=== PATIENT | male | born 1935 | race Caucasian/White ===

== ENCOUNTER 2017-06-21 16:09 | Observation (INO) ==
--- NOTE | 2017-06-21 17:00 | XRay Report ---
2 view chest June 21, 2017 at 0453 hours Indication: Shortness of breath Comparison: July 29, 2015 Findings: Cardiomediastinal contours are stable with sternotomy wires and midline. Lungs are clear bilaterally. No acute osseous abnormalities. Visualized upper abdomen demonstrates no acute pathology. Impression: No acute cardiopulmonary findings PROCEDURE INTERPRETED AT [facility] [place] DEPARTMENT OF RADIOLOGY Final Report Signed by: Stephan Yen
[2017-06-21 17:21] LABS: Basophils # 0.1 10*3/uL (0.0-0.2); Basophils % 0.5 % (0.0-0.8); Eosinophils # 0.1 10*3/uL (0.0-0.87); Eosinophils % 0.4 % (0.00-10.9); Hemoglobin 15.4 GM/DL (14.0-18.0); Immature Granulocytes % 0.6 %; Immature Granulocytes Absolute 0.08 #; Lymphocytes # 1.2 10*3/uL (1.4-4.0); Lymphocytes % 8.5 % (21.2-54.2); Mean Corpuscular HGB Conc 33.5 GM/DL (32-36); Mean Corpuscular Hemoglobin 30 PG (27-34); Mean Corpuscular Volume 90.9 FL (87-102); Mean Platelet Volume 8.8 FL (9.6-12.0); Monocytes # 0.6 10*3/uL (0.11-0.8); Monocytes % 4.1 % (1.7-12.7); Neutrophils # 11.9 10*3/uL (1.4-7.4); Neutrophils % 85.9 % (38.7-73.9); Platelet Count 241 T/CUMM (130-400); Red Blood Count 5.06 MC/CUMM (3.8-5.5); Red Cell Distribution Width 13.5 % (9.3-17.3); White Blood Count 13.9 T/CUMM (4-12)
[2017-06-21] MEDS ORDERED: ALBUTEROL/IPRATROPIUM 3 ML NEB RESP TX STA (17:23)
--- NOTE | 2017-06-21 17:24 | Emergency Department Note ---
IEstefany Emily, am scribing for, and in the presence of, Angel Benavides MD 17: 20. Makayla Diaz Charles R, MD, personally performed the services described in this documentation, ascribed by Nae Allison in my presence, and it is both accurate and complete 724 . Arrival - Arrival Chief Complaint: Shortness of Breath Stated Complaint: Blood pressure. Seeing double ED Nursing Triage Note: c/o shortness of breath onset "couple of days ago". + chills. Denies cough. Also c/o "double vision" and low blood pressure---seen by Dr Murray today and instructed to come to ER. Denies pain. Mode of Arrival: Wheelchair Limitations: No Limitations Source: Patient, Family (daughter) - History of Present Illness HPI Narrative: Pt is a 82 y/o male who came to ED with c/o SOB that onset "couple of days" but experienced double vision while driving today. Family notes voice is off, usually distinctive and clear, not raspy as it is currently. Pt states also experiencing generalizing weakness, low BP, but denies cough or any pain. Pt was seen by Dr Murray today and instructed to come to ED. PMHx of CAD, COPD, AL, HTN, GERD, BPH, CABG by Kyrie, no stroke hx. Family notes pt hasn't ate anything all day but is 128 today. Family notes pt had knee surgery years back and has knee pain chronically, so has had weight gain from decrease physical activity. Pt takes care of himself and at home. Onset (ago): hour(s) Consistency: constant Severity: mild, moderate Severity scale (1-10): 4 Quality: other (weakness) Allergies/Adverse Reactions: Allergies Allergy/AdvReac Type Severity Reaction Status Date / Time No Known Allergies Allergy Verified 06/21/17 16:41 Home Medications: Home Medications Medication Instructions Recorded Confirmed Type Aspirin Tab 1 tablet PO QAM 06/24/15 06/21/17 History Pantoprazole Tab [Protonix Tab] 40 mg PO QAM 06/24/15 06/21/17 History Ramipril [Altace] 10 mg PO QAM 06/24/15 06/21/17 History Tamsulosin [Flomax] 0.4 mg PO QAM 06/24/15 06/21/17 History Zolpidem Tartrate [Ambien] 10 mg PO BEDTIME 06/24/15 06/21/17 History clonazePAM TAB [KlonoPIN] 0.5 mg PO BID 06/24/15 06/21/17 History Albuterol/Ipratropium Neb [Duoneb] 3 ml RESP TX RT Q6H #1 06/26/15 06/21/17 Rx Atenolol [Atenolol] 25 mg PO QAM 06/21/17 06/21/17 History Hydrocodone/Acetaminophen 1 tablet PO Q6H PRN 06/21/17 06/21/17 History [Hydrocodon-Acetaminophn 10-325] Methocarbamol [Methocarbamol] 500 mg PO DAILY PRN 06/21/17 06/21/17 History Review of System - Review of System 12 point system: reviewed and no additional remarkable complaints except as stated - Review of System Constitutional: Present: other (low BP). Absent: chills, fever, weakness Eyes: Present: vision change (double vision) Respiratory: Present: respiratory distress (SOB) Cardiovascular: Absent: chest pain, syncope Gastrointestinal: Absent: abdominal pain, nausea, vomiting Musculoskeletal: Present: leg pain (chronically). Absent: arm pain Skin: Absent: rash Neurological: Present: weakness, other (raspy voice). Absent: headache, numbness, confusion, abnormal gait Medical,Surgical,& Family Hx - Medical History Cardio: History of: CAD, Hypertension, AL Respiratory: History of: COPD Genitourinary: History of: Prostate Problems (BPH) Gastrointestinal: History of: GERD - Surgical History Cardiac Surgeries: Sugical HX of: Cardiac Surgery (CABG) Abdominal Surgeries: Surgical HX of: Appendectomy, Colonoscopy, EGD Reproductive Surgeries: Surgical HX of;: Prostate Surgery Orthopedic Surgeries: Surgical HX of;: Total Knee Replacement (left) - Family History Family History: Reports;: Family Heart Disease, Family Hypertension (father, mother, brother) - Social History Smoking Status: Never smoker Frequency of Alcohol Use: None Type of Drug Use: None Marital Status: Lives With:: Spouse Functional capacity: independent ambulation Exam Vital Signs: Vital Signs Temperature 97.8 F 06/21/17 16:36 Pulse Rate 77 06/21/17 18:30 Respiratory Rate 23 06/21/17 18:30 Blood Pressure 123/63 06/21/17 18:30 O2 Sat by Pulse Oximetry 99 06/21/17 18:30 - General General appearance: alert, in no apparent distress - Head Head exam: Present: atraumatic, normocephalic - Eye Eye exam: Present: PERRL, EOMI - ENT ENT exam: Present: mucous membranes moist. Absent: mucous membranes dry - Neck Neck exam: Present: full ROM - Chest Chest inspection: Present: symmetric chest wall rise. Absent: tenderness - Respiratory Respiratory exam: Present: rales (slight rales; more crackles), rhonchi. Absent : accessory muscle use, respiratory distress - Cardiovascular Cardiovascular exam: Present: regular rate, normal rhythm, normal heart sounds - Abdominal Exam Abdominal exam: Present: soft, distention (bloated). Absent: tenderness - Extremities Exam Extremities exam: Present: full ROM, pedal edema. Absent: tenderness - Neurological Exam Neurological exam: Present: alert, oriented X3 (no confusion), CN II-XII intact , other (speech is slowed and weak, but not slurred). Absent: motor sensory deficit - Psychiatric Psychiatric exam: Present: normal affect, normal mood - Skin Skin exam: Present: warm, dry Course - Reevaluation(s) Reevaluation #1: On the emergency room patient developed his diplopia again when he covers one eye right or left his vision is normal both he has double vision past 6 feet Time: 18:59 - Consultations Consultation #1: Hospitalist will admit patient Time: 19:29 Results - Labs CBC & BMP: 06/21/17 17:10 06/21/17 17:10 Lab Results: I have reviewed the patients labs Labs: Laboratory Tests 06/21/17 17:10 WBC 13.9 H RBC 5.06 Hgb 15.4 Hct 46.0 Plt Count 241 MPV 8.8 L Neut % (Auto) 85.9 H Lymph % (Auto) 8.5 L Neut # (Auto) 11.9 H Lymph # (Auto) 1.2 L Laboratory Tests 06/21/17 17:10 Sodium 137 Potassium 4.5 Chloride 101 Carbon Dioxide 29 Creatinine 1.80 H GFR Calculation 45 Glucose 131 H AST 24 Alkaline Phosphatase 102 Total Creatine Kinase 67 CK-MB (CK-2) < 1.0 Troponin I < 0.015 Total Protein 8.4 H Globulin 4.5 H Albumin/Globulin Ratio 0.8 L - Diagnostic Findings Procedure: Chest x-ray: report reviewed by me (No acute cardiopulmonary findings.) Disposition Clinical Impression: Debility, COPD (chronic obstructive pulmonary disease), Diplopia, Generalized weakness, TIA (transient ischemic attack) Case discussed with: patient, patient's family Disposition: Still a Patient Condition: Stable Time of Disposition: 19:00 NIH Stroke Score - Stroke Score Initial Assessment Level of Consciousness: Alert Level of Consciousness Questions: Answers Both Correctly Level of Consciousness Commands: Obeys Both Correctly Best Gaze: Normal Visual Tomlinson: No Visual Loss Facial Palsy: Normal Motor - Right Arm: No Drift Motor - Left Arm: No Drift Motor - Right Leg: No Drift Motor - Left Leg: No Drift Limb Ataxia: Absent Sensory (Pin Prick): Normal Best Language: Normal Dysarthria: Normal Extinction / Inattention (Neglect): No Neglect NIH Stroke Score: 0
[2017-06-21 17:50] LABS: Alanine Aminotransferase 18 U/L (16-61); Albumin 3.9 G/DL (3.4-5.0); Alkaline Phosphatase 102 U/L (45-117); Aspartate Amino Transferase 24 U/L (0-37); Calcium 9.9 MG/DL (8.5-10.1); Total Protein 8.4 G/DL (6.4-8.3)
[2017-06-21 17:51] LABS: Blood Urea Nitrogen 11 MG/DL (7-18); Glucose 131 MG/DL (74-106); Osmolality,Calculated 273.8 MOS/KG (273-304); Potassium 4.5 MMOL/L (3.5-5.1); Sodium 137 MMOL/L (136-145); Troponin I Only < 0.015 NG/ML (0.00-0.045)
--- NOTE | 2017-06-21 17:58 | EKG Report ---
Stationary ECG Study [facility] ER Test Date: 06/21/2017 4:46:29 PM Pat Name: VIVIANE MOORE Department: Room: Gender: M Tuyere Fitter: Sue Duarte : 1935 Requested by: Meli Webster Order Number: [id number] Reading MD: RAISSA ASHLEY Intervals [place] Rate: 69 P: 74 [place]: 154 QRS: 76 QRSD: 78 T: 91 QT: 411 QTc: 430 Interpretive Statements SINUS RHYTHM WITH SINUS ARRHYTHMIA Electronically Signed On 06-21-17 20:16:05 CDT by RAISSA ASHLEY [email or web address]
--- NOTE | 2017-06-21 18:26 | CT Report ---
CT head/brain wo con INDICATION: Diplopia The total DLP is 1081 mGy*cm. COMPARISON: None available Technique: Serial axial tomographic images of the brain were obtained without the use of intravenous contrast. Dose reduction: This CT exam was performed using one or more of the following dose reduction techniques: Automated exposure control, automated adjustment of the mA and/or KV according to patient size, or use of iterative reconstruction technique. Findings: Moderate generalized atrophy is noted with mild prominence of the sulci and cortical volume loss. Periventricular white matter hypodensity changes are noted bilaterally which do not demonstrate mass effect and are nonspecific but favored to represent sequela of chronic microvascular ischemia. There is no evidence of vascular territory infarct or acute intracranial hemorrhage. The marcos-white matter differentiation is generally maintained. There is no hydrocephalus. The basilar cisterns are patent. The visualized paranasal sinuses, mastoid air cells and middle ear cavities are predominantly clear. Postsurgical changes of bilateral maxillary antrostomies are noted. The included orbits and their contents appear within normal limits. The visualized osseous structures and overlying soft tissues of the skull and face demonstrate no acute abnormality. IMPRESSION: No acute intracranial abnormality. Mild generalized atrophy and sequela of chronic microvascular ischemia. PROCEDURE INTERPRETED AT [facility] DEPARTMENT OF RADIOLOGY Final Report Signed by: Burt Francisco
--- NOTE | 2017-06-21 20:01 | Hospitalist History & Physical ---
Assessment and Plan (1) Diplopia Status: Acute Assessment and plan: The patient is admitted to the hospital for evaluation of diplopia. We will check MRI scan. We will obtain neurology consultation. We will continue the patient's usual home medications. Current Visit: Yes (2) COPD (chronic obstructive pulmonary disease) Problem details: No acute bronchospasm Continue bronchodilator therapy prn empiric Abx Rx no solumedrol Status: Chronic Current Visit: Yes Qualifiers: Chronic bronchitis type: simple Qualified Code(s): J41.0 - Simple chronic bronchitis (3) Debility Status: Acute Current Visit: Yes History of Present Illness Chief complaint: Diplopia and shortness of breath History of present illness: Mr. Belle is a 82 year old male with history of intermittent atrial fibrillation and moderate to severe COPD. The patient was on his way to a primary care visit with Dr. Vuong today. The patient noticed while driving that he had diplopia. The patient was able to maneuver successfully. I had Dr. Vuong's office he was noted to have low blood pressure and they referred him to the emergency room. The patient is feeling better now although he has has some residual nausea and abdominal distention. The patient's symptoms are moderate, continuous, and slowly improving. The patient is alert and oriented. He does not manifest dysarthria. The patient not denies fever or chills. A complete 10 system review was obtained all systems not mentioned in history of present illness were negative. Home Medications Medication Instructions Recorded Confirmed Type Aspirin Tab 1 tablet PO QAM 06/24/15 06/21/17 History Pantoprazole Tab [Protonix Tab] 40 mg PO QAM 06/24/15 06/21/17 History Ramipril [Altace] 10 mg PO QAM 06/24/15 06/21/17 History Tamsulosin [Flomax] 0.4 mg PO QAM 06/24/15 06/21/17 History Zolpidem Tartrate [Ambien] 10 mg PO BEDTIME 06/24/15 06/21/17 History clonazePAM TAB [KlonoPIN] 0.5 mg PO BID 06/24/15 06/21/17 History Albuterol/Ipratropium Neb [Duoneb] 3 ml RESP TX RT Q6H #1 06/26/15 06/21/17 Rx Atenolol [Atenolol] 25 mg PO QAM 06/21/17 06/21/17 History Hydrocodone/Acetaminophen 1 tablet PO Q6H PRN 06/21/17 06/21/17 History [Hydrocodon-Acetaminophn 10-325] Methocarbamol [Methocarbamol] 500 mg PO DAILY PRN 06/21/17 06/21/17 History Allergies Allergy/AdvReac Type Severity Reaction Status Date / Time No Known Allergies Allergy Verified 06/21/17 16:41 Medical,Surgical,& Family Hx - Medical History Cardio: History of: CAD, Hypertension, [place] Respiratory: History of: COPD Genitourinary: History of: Prostate Problems (BPH) Gastrointestinal: History of: GERD - Surgical History Cardiac Surgeries: Sugical HX of: Cardiac Surgery (CABG) Abdominal Surgeries: Surgical HX of: Appendectomy, Colonoscopy, EGD Reproductive Surgeries: Surgical HX of;: Prostate Surgery Orthopedic Surgeries: Surgical HX of;: Total Knee Replacement (left) - Family History Family History: Reports;: Family Heart Disease, Family Hypertension (father, mother, brother) - Social History Smoking Status: Never smoker Frequency of Alcohol Use: None Type of Drug Use: None Marital Status: Lives With:: Spouse Functional capacity: independent ambulation 12 point system: reviewed and no additional remarkable complaints except as stated Exam - Constitutional Vitals: Period Temp Pulse Resp BP Sys/Richards Pulse Ox Last 24 Hr 97.8 F 67-77 18-25 100-142/45-75 98-100 Exam: Constitutional System: Mild distress. No tremulousness. Head: Normocephalic, atraumatic. Ears, Nose and Throat System: No evidence of Otitis or Mastoiditis. No epistaxis or discharge Eyes System: Pupils equal, round, and reactive. Extraocular muscles intact. Neck: Supple, without adenopathy, No jugular venous distention. No thyromegaly , neck mass, or prior surgery apparent. Respiratory System: Chest clear to auscultation. There is moderate air trapping and minimal wheezing Cardiovascular System: Heart with regular rate and rhythm. No murmur. GI System: Abdomen soft, nontender. Normo active bowel sounds present. Musculoskeletal System: limbs with no pedal edema. Full distal pulses. Neurological System: No discernable sensory deficit. No aphasia Psychiatric System: Conversation is rational Capillary Refill: less than 2 sec Results - Labs CBC & BMP: 06/21/17 17:10 06/21/17 17:10 Lab Results: I have reviewed the past 24 hour labs
[2017-06-21] MEDS ORDERED: ENOXAPARIN 40 MG/0.4 ML SYRINGE SUBCUT SCH (21:00)
[2017-06-21] MEDS ORDERED: ONDANSETRON 4 MG/2 ML VIAL IV PRN (21:58)
[2017-06-21] MEDS ORDERED: ACETAMINOPHEN 325 MG TABLET PO PRN (21:58)
[2017-06-21] MEDS ORDERED: ZALEPLON 5 MG CAPSULE PO SCH (21:58)
[2017-06-21] MEDS: SODIUM CHLORIDE 0.9% 1,000 ML IV SCH (22:18)
[2017-06-21] MEDS: clonazePAM 0.5 MG TABLET PO SCH (22:18)
[2017-06-22] MEDS: ALBUTEROL/IPRATROPIUM 3 ML NEB RESP TX SCH ×3 (00:57→13:12)
[2017-06-22 06:22] LABS: Blood Urea Nitrogen 17 MG/DL (7-18); Calcium 8.9 MG/DL (8.5-10.1); Glucose 89 MG/DL (74-106); Osmolality,Calculated 279.4 MOS/KG (273-304); Potassium 4.2 MMOL/L (3.5-5.1); Sodium 140 MMOL/L (136-145); Troponin I Only < 0.015 NG/ML (0.00-0.045)
--- NOTE | 2017-06-22 07:30 | EKG Report ---
Stationary ECG Study [facility] Test Date: 06/22/2017 7:28:29 AM Pat Name: VIVIANE MOORE Department: Room: 524 Gender: M Racing Secretary And Handicapper: EDWIN : 1935 Requested by: Elton Leon Order Number: [id number] Reading MD: RAISSA ASHLEY Intervals [place] Rate: 67 P: 52 MD: 163 QRS: 53 QRSD: 88 T: 138 QT: 410 QTc: 425 Interpretive Statements SINUS RHYTHM WITH MARKED SINUS ARRHYTHMIA ST DEVIATION AND MODERATE T-WAVE ABNORMALITY, CONSIDER ANTERIOR ISCHEMIA Electronically Signed On 06-22-17 14:05:47 CDT by RAISSA ASHLEY [email or web address]
[2017-06-22 07:38] LABS: Basophils # 0.1 10*3/uL (0.0-0.2); Basophils % 0.5 % (0.0-0.8); Eosinophils # 0.3 10*3/uL (0.0-0.87); Eosinophils % 2.5 % (0.00-10.9); Immature Granulocytes % 0.3 %; Immature Granulocytes Absolute 0.03 #; Lymphocytes # 2.3 10*3/uL (1.4-4.0); Lymphocytes % 22.3 % (21.2-54.2); Mean Corpuscular HGB Conc 33.3 GM/DL (32-36); Mean Corpuscular Hemoglobin 31 PG (27-34); Mean Corpuscular Volume 91.7 FL (87-102); Mean Platelet Volume 9.2 FL (9.6-12.0); Monocytes # 0.8 10*3/uL (0.11-0.8); Monocytes % 7.5 % (1.7-12.7); Neutrophils # 6.8 10*3/uL (1.4-7.4); Neutrophils % 66.9 % (38.7-73.9); Platelet Count 198 T/CUMM (130-400); Red Blood Count 4.36 MC/CUMM (3.8-5.5); Red Cell Distribution Width 13.5 % (9.3-17.3); White Blood Count 10.2 T/CUMM (4-12)
[2017-06-22 07:41] LABS: Hemoglobin 13.3 GM/DL (14.0-18.0)
[2017-06-22] MEDS ORDERED: TAMSULOSIN 0.4 MG CAPSULE PO SCH (09:00)
[2017-06-22] MEDS ORDERED: PANTOPRAZOLE 40 MG TABLET PO SCH (09:00)
[2017-06-22] MEDS ORDERED: ATENOLOL 25 MG TABLET PO SCH (09:00)
[2017-06-22] MEDS ORDERED: RAMIPRIL 5 MG CAPSULE PO SCH (09:00)
[2017-06-22] MEDS ORDERED: ASPIRIN 325 MG TABLET PO SCH (09:00)
--- NOTE | 2017-06-22 09:23 | Ultrasound Report ---
Exam: US carotid duplex BI Date: 06/22/2017 Indication: Diplopia Findings: Grayscale color flow analysis and spectral analysis imaging was performed with image stored and captured. Right Side Flow velocities centimeters per second Common carotid artery: 62.5 Proximal ICA: 68.2 Distal ICA: 68.2 External carotid artery: 162.8 Vertebral artery: 46.8 ICA/CCA ratio: 1.1 Measurements in millimeters Distal ICA: 6 Left SIde Flow velocities centimeters per second Common carotid artery: 111.5 Proximal ICA: 60.0 Distal ICA: 81.4 External carotid artery: 97.7 Vertebral artery: 62.2 ICA/CCA ratio: 0.7 Measurements in millimeters Distal ICA: 5.2 Cardiac dysrhythmia present. Atherosclerotic plaque is present in the carotid bulb extending into the internal carotid arteries bilaterally. Normal color flow. Impression: 1. 16-49% stenosis bilaterally 2. Cardiac dysrhythmia Today studies were performed utilizing indirect NASCET criteria The ultrasound images were stored and captured PROCEDURE INTERPRETED AT [facility] DEPARTMENT OF RADIOLOGY Final Report Signed by: Dr. Wilder Vaughn
--- NOTE | 2017-06-22 10:18 | Magnetic Resonance Report ---
Exam: MRI brain without and with contrast Exam date: June 22, 2017 at 0905 hours Indication: 82-year-old male with diplopia and recurrent headaches Comparison: No relevant comparisons Technique: Multiplanar, multisequence magnetic resonance imaging of the brain prior to and after 12 mL gadolinium-based intravenous contrast was performed in routine fashion. Axial, coronal and sagittal images submitted for interpretation Findings: Parenchyma: No mass or midline shift. No intra or extra-axial. Generalized atrophy with minimal microangiopathic small vessel ischemic changes within the periventricular white matter. No abnormal enhancement Ventricles and sulci: Normal in size and configuration Posterior fossa: Cerebellum, brainstem and cervicomedullary junction are preserved Orbits and sinuses: Globes and orbits are intact. Periorbital and pericavernous spaces are normal. Mild inflammatory changes within the left maxillary sinus. Postoperative changes consistent with prior partial ethmoid and maxillary antrectomies Sella: Pituitary is normal. Osseous: No abnormality of the skull base or calvarium is identified Impression: 1. No acute abnormality. Specifically no evidence of mass, hemorrhage or infarction. 2. Global atrophy with mild microangiopathic small vessel ischemic changes 3. Paranasal sinus inflammatory changes PROCEDURE INTERPRETED AT [facility] DEPARTMENT OF RADIOLOGY Final Report Signed by: Stephan Yen
[2017-06-22] MEDS: clonazePAM 0.5 MG TABLET PO SCH (10:30)
[2017-06-22 12:28] VITALS: BP 159/69
--- NOTE | 2017-06-22 14:23 | Discharge Summary ---
Hospital Course - Hospital Course Hospital Course: 82 year old WM with history of paroxysmal atrial fibrillation and moderate to severe COPD was admitted for evaluation of diplopia. Patient was seen by his primary care physician and was referred here to the emergency room. The patient also has acute renal failure as well as uncontrolled hypertension. The patient was admitted for observation. He underwent MRI of the brain which did not show any evidence of acute bleed mass or stroke. He did have global atrophy with mild chronic microangiopathic small vessel ischemic changes but no evidence of acute stroke also had some paranasal sinus inflammatory changes. Patient's diplopia has currently resolved. Since patient's diplopia has resolved and he has no other active medical issues, he is being discharged home in stable condition to follow-up with his primary care physician. He was advised to return to ER for any worsening symptoms. The patient will follow up with Neurology as an outpatient in 2 weeks to complete the rest of his neurological workup. We are sending out a myasthenia gravis panel, Dr. Lobo will follow-up on that on his return office visit. Due to possibility of TIA we are discontinuing his aspirin and switching him to Plavix. I discussed with Dr. Lobo. - Time spent with patient Time with patient DS: Less than 30 minutes Diagnosis - Discharge Diagnosis (1) Diplopia Status: Resolved Discharge Plan - Discharge Data Condition at Discharge: Stable Discharge Diet: advance to your usual diet, low salt diet Activity: resume usual activities as tolerated Hygiene: no restrictions Weight Bearing at Discharge: full weight bearing - Discharge Medications New amLODIPine [Norvasc] 10 mg PO DAILY #30 tablet Clopidogrel [Plavix] 75 mg PO DAILY #30 tablet Continue clonazePAM TAB [KlonoPIN] 0.5 mg PO BID Tamsulosin [Flomax] 0.4 mg PO QAM Pantoprazole Tab [Protonix Tab] 40 mg PO QAM Albuterol/Ipratropium Neb [Duoneb] 3 ml RESP TX RT Q6H #1 Methocarbamol 500 mg PO Q8HR PRN PRN Reason: Muscle Spasm Hydrocodone/Acetaminophen [Hydrocodon-Acetaminophn 10-325] 10 tablet PO Q8HR PRN PRN Reason: Pain Atenolol 25 mg PO QAM Discontinued Ramipril [Altace] 10 mg PO QAM Aspirin Tab 1 tablet PO QAM Zolpidem Tartrate [Ambien] 10 mg PO BEDTIME - Follow Up or Referral Follow Up: Paul Lobo MD [Physician] - 2 Weeks - Forms/Instructions Exam - Constitutional Vitals: Period Temp Pulse Resp BP Sys/Richards Pulse Ox Last 24 Hr 97.0 F-98.1 F 63-78 12-25 100-162/45-77 95-100 Exam: General: No Acute Distress HEENT: Normocephalic, atraumatic, Extra ocular movements intact Neck: Supple, No JVD Chest: Clear to auscultation B/L CV: S1 + S2 audible without murmur, gallop or rub Abd: soft, NT, Non-distended, BS + Ext: No edema Skin: No purpura, bruising or rash Rheumatologic: No Joint deformities Neurologic: Strength 5/5 all extremities, no gross sensory deficits Discharge Results Labs on day of discharge: Labs from last 24 hours 06/22/17 06/22/17 06/21/17 05:24 05:24 18:29 WBC 10.2 RBC 4.36 Hgb 13.3 L D Hct 40.0 L MCV 91.7 MCH 31 MCHC 33.3 RDW 13.5 Plt Count 198 MPV 9.2 L Neut % (Auto) 66.9 Lymph % (Auto) 22.3 Dundy % (Auto) 7.5 Eos % (Auto) 2.5 Baso % (Auto) 0.5 Neut # (Auto) 6.8 Lymph # (Auto) 2.3 Dundy # (Auto) 0.8 Eos # (Auto) 0.3 Baso # (Auto) 0.1 Immature Gran % 0.3 Nucleated RBC % 0.0 Immature Gran # 0.03 Nucleated RBCs # 0.00 Immature Plt Fraction 0.0 Sodium 140 Potassium 4.2 Chloride 104 Carbon Dioxide 30 Anion Gap 10.2 BUN 17 Creatinine 1.20 GFR Calculation 72 BUN/Creatinine Ratio 14.00 Glucose 89 POC Glucose 134 H Calculated Osmolality 279.4 Calcium 8.9 Magnesium 2.0 Total Bilirubin AST ALT Alkaline Phosphatase Total Creatine Kinase 99 D CK-MB (CK-2) Troponin I < 0.015 B-Natriuretic Peptide Total Protein Albumin Globulin Albumin/Globulin Ratio 06/21/17 06/21/17 06/21/17 17:10 17:10 17:10 WBC 13.9 H RBC 5.06 Hgb 15.4 Hct 46.0 MCV 90.9 MCH 30 MCHC 33.5 RDW 13.5 Plt Count 241 MPV 8.8 L Neut % (Auto) 85.9 H Lymph % (Auto) 8.5 L Dundy % (Auto) 4.1 Eos % (Auto) 0.4 Baso % (Auto) 0.5 Neut # (Auto) 11.9 H Lymph # (Auto) 1.2 L Dundy # (Auto) 0.6 Eos # (Auto) 0.1 Baso # (Auto) 0.1 Immature Gran % 0.6 Nucleated RBC % 0.0 Immature Gran # 0.08 Nucleated RBCs # 0.00 Immature Plt Fraction 0.0 Sodium 137 Potassium 4.5 Chloride 101 Carbon Dioxide 29 Anion Gap 11.5 BUN 11 Creatinine 1.80 H GFR Calculation 45 BUN/Creatinine Ratio 6.00 Glucose 131 H POC Glucose Calculated Osmolality 273.8 Calcium 9.9 Magnesium Total Bilirubin 0.60 AST 24 ALT 18 Alkaline Phosphatase 102 Total Creatine Kinase 67 CK-MB (CK-2) < 1.0 Troponin I < 0.015 B-Natriuretic Peptide 144 H Total Protein 8.4 H Albumin 3.9 Globulin 4.5 H Albumin/Globulin Ratio 0.8 L DS: Provider Date of admission: 06/21/17 20:02 Primary care physician: Nellie Murray Attending physician on admission: Gomez Robertson MD Consults: 06/21/17 21:58 Consult to Physician [CONS] Routine Comment: diplopia Consulting Provider: Paul Lobo Person Notified: SHELTON Date Notified: 06/22/17 Time Notified: 09:04 Discharging clinician: Kylee Martin MD
[2017-06-22] MEDS ORDERED: amLODIPine 10 MG TABLET PO SCH (14:30)
--- NOTE | 2017-06-22 14:33 | Neurology Consult Note ---
History of Present Illness History of present illness: Mr. 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 The patient was on his way to a primary care visit with Dr. Vuong yesterday when he noticed while driving that he had double vision. The patient was able to maneuver successfully. At Dr. Vuong's office he was noted to have low blood pressure and they referred him to the emergency room. The patient is feeling better now although he has has some residual nausea and abdominal distention. First time double vision appeared on the Labor Day Tuesday which lasted all day long pretty much. Infected lasted next day as well then resolved. Yesterday symptoms started and he came to the hospital. MRI of the brain with and without contrast reveals no acute abnormalities including no mass. Carotid ultrasound is unremarkable. Patient takes aspirin a day. Double vision has resolved completely now. Home Medications Medication Instructions Recorded Confirmed Type Aspirin Tab 1 tablet PO QAM 06/24/15 06/22/17 History Pantoprazole Tab [Protonix Tab] 40 mg PO QAM 06/24/15 06/22/17 History Ramipril [Altace] 10 mg PO QAM 06/24/15 06/22/17 History Tamsulosin [Flomax] 0.4 mg PO QAM 06/24/15 06/22/17 History Zolpidem Tartrate [Ambien] 10 mg PO BEDTIME 06/24/15 06/22/17 History clonazePAM TAB [KlonoPIN] 0.5 mg PO BID 06/24/15 06/22/17 History Albuterol/Ipratropium Neb [Duoneb] 3 ml RESP TX RT Q6H #1 06/26/15 06/22/17 Rx Atenolol [Atenolol] 25 mg PO QAM 06/21/17 06/22/17 History Hydrocodone/Acetaminophen 10 tablet PO Q8HR PRN 06/21/17 06/22/17 History [Hydrocodon-Acetaminophn 10-325] Methocarbamol [Methocarbamol] 500 mg PO Q8HR PRN 06/21/17 06/22/17 History Allergies Allergy/AdvReac Type Severity Reaction Status Date / Time No Known Allergies Allergy Verified 06/21/17 16:41 12 point system: reviewed and no additional remarkable complaints except as stated Medical,Surgical,& Family Hx - Medical History Cardio: History of: Cardiac Dysrhythmia, CAD, Hypertension, [place], Cardiovascular Problems Respiratory: History of: COPD Genitourinary: History of: Prostate Problems (BPH) Gastrointestinal: History of: GERD - Surgical History Cardiac Surgeries: Sugical HX of: Cardiac Surgery (CABG) Abdominal Surgeries: Surgical HX of: Appendectomy, Colonoscopy, EGD Reproductive Surgeries: Surgical HX of;: Prostate Surgery Orthopedic Surgeries: Surgical HX of;: Total Knee Replacement (left) - Family History Family History: Reports;: Family Heart Disease, Family Hypertension (father, mother, brother) - Social History Smoking Status: Never smoker Frequency of Alcohol Use: None Type of Drug Use: None Exam - Constitutional Vitals: Period Temp Pulse Resp BP Sys/Richards Pulse Ox Last 24 Hr 97.0 F-98.1 F 63-78 12-25 100-162/45-77 95-100 Exam: GENERAL: Patient is in no acute distress. NECK: Neck is supple. There is no JVD. No carotid bruits present. No thyroid masses. CVS: First and second heart sounds are normal. There is no S3 present. Regular rate and rhythm. RESPIRATORY: Lungs are clear to auscultation without any rales or rhonchi. ABDOMEN: Soft and non-tender. Bowel sounds are present. There is no hepatosplenomegaly. EXT: There is no palpable edema. Peripheral pulses are present. Skin: No rashes Central Nervous system: General: Alert, awake and Oriented x 3 Speech: Fluent Comprehension: Intact and normal Facial expressions: Normal Cranial Nerves: CN1/Olfactory: Normal CN II/ Optic: Normal, Visual [place] unreliable CN III, and : COURT & EOMI CN V: Normal & intact CN VII: face is symmetric CNVIII: Normal CN XI/X/XI/XII: Intact and Normal Motor: Bulk and Tone is normal. Strength in the right 5/5 Strength in the left 5/5 Sensory: Grossly intact for all the modalities of PP, LT and temp sense Reflexes: 1+ and symmetrical Cerebellar function: Normal finger to nose and heel to flynn testing. Toes: Equivocal Gait: Normal Results - Labs CBC & BMP: 06/22/17 05:24 06/22/17 05:24 Assessment and Plan (1) Diplopia Status: Resolved Assessment and plan: Differential diagnoses include posterior circulation TIAs, basilar tip aneurysm , neuromuscular junction disorder such as myasthenia gravis etc. We will stop aspirin. Start Plavix 75 mg daily. Myasthenia gravis panel We will schedule outpatient nerve conduction study/EMG with rep stim We will also schedule outpatient MRA [place] and carotid arteries Follow-up with me in 2 weeks Current Visit: Yes Specialty Discharge - Follow Up or Referrals Follow up with: Paul Lobo MD [Physician] - 2 Weeks
[2017-06-22] MEDS: SODIUM CHLORIDE 0.9% 1,000 ML IV SCH (15:03)
[2017-06-27 21:31] LABS: ACh Receptor (Muscle) Binding 0.01 nmol/L (<=0.02); ACh Receptor (Muscle) Modulati 0 %; Striational (Striated Muscle) Negative titer (<1:120)
== END 2017-06-22 15:51 | disposition home or self-care (01) ==
LOC: N.EDINP 16:09 → N.ED 16:09 → SUATTDRO 20:02 → N.5E 21:25
PROVIDERS: ADMIT Family Medicine; ATTEND Hospitalist